=== PATIENT | male | born 1945 | race Caucasian/White ===

== ENCOUNTER → 2017-12-06 | Outpatient (CLI) | payer OTHER ==
[~2017-12-06] MED LIST: LIDOCAINE 1% 300 MG/30 ML SDV ONE
== END ==
LOC: FIMAGING 12:11
PROVIDERS: ATTEND Internal Medicine Endocrinology, Diabetes & Metabolism
PROC: 0G9G3ZX Drainage of Left Thyroid Gland Lobe, Percutaneous Approach, Diagnostic (ICD-10-PCS; principal; 2017-12-06)
DX: D34 Benign neoplasm of thyroid gland (principal)

== ENCOUNTER 2018-10-05 14:08 | Emergency (ER) | payer OTHER ==
--- NOTE | 2018-10-05 15:15 | EDPHY ---
HPI/HX/ROS/PE/MDM Narrative: CHIEF COMPLAINT: Fall, head injury HPI: The patient is a 72 y/o male complaining of a head injury secondary to a mechanical slip and fall about 1 hour ago. He was walking down the trail with his dog when he slipped and fell landing backwards and striking the back of his head on a rock. He did not lose consciousness, but did have pain on his posterior scalp. He got up and walked home and he and his then noticed he was bleeding so he came to the ED. He denies headache, blurred vision, weakness , paresthesias, vision changes, acute neck or back pain, or any other trauma from the fall. No anticoagulant use. Takes a daily baby aspirin. REVIEW OF SYSTEMS: Aside from elements discussed in the HPI, a comprehensive 10-point review of systems was reviewed and is negative. 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 . Lives in [place]. Very active, hikes with dog for 2 hours daily. PCP: Dr. Lacy. PHYSICAL EXAM: General:Patient is alert, in no acute distress. Head: 1cm laceration to right occiput. ENT:Eyes are normal to inspection. ENT inspection normal. Neck: Normal inspection. Full range of motion. Respiratory:No respiratory distress. Breath sounds normal bilaterally. Cardiovascular: Regular rate and rhythm. Strong peripheral pulses. Normal cap refill. Abdomen:The abdomen is nontender to palpation. There are no peritoneal signs. Back: Normal to inspection. No tenderness to palpation. Skin: Normal color. No rash. Warm and dry. Extremities: Normal appearance. Full range of motion. Neuro: Oriented x3. Normal motor function. Normal sensory function. ED Course: This is a healthy and well-appearing 72 y/o male who presents with a posterior scalp injury secondary to a slip and fall while hiking today. He has a completely normal neurologic exam. There is a 1cm laceration to the right occiput, but no other visible trauma. Discussed risks and benefits of neuroimaging given age, head injury, and aspirin use. He has opted for head CT, which I agree is reasonable. Plan to repair laceration with Dermabond. Procedure: Laceration repair. Verbal consent was obtained from the patient. The linear 1cm laceration on the right occiput was anesthetized using topical anesthetic. The wound was cleaned with standard ED protocol. There were no deep structures involved. The wound was repaired with Dermabond. The wound repair was simple. The procedure was performed by myself, Dr. Bates. Head CT: negative per Dr. Lozano. Reassessed patient and discussed findings. Neuro exam remains normal. He will be discharged home with standard care and follow up instructions. Return precautions discussed. - Data Points Imaging Results: Imaging Impressions Head CT 10/05/18 15:22 Impression: There is a small right occipital scalp laceration, with no acute intracranial abnormality identified on this unenhanced CT evaluation. If there is further clinical concern regarding the patient's symptoms, MR imaging is suggested, if not otherwise contraindicated. Findings were discussed with Forrest Bates MD at 16:03, on 10/05/2018. Imaging: Discussed imaging studies w/ callisthenics instructor Radiologist, I viewed and interpreted images myself Medications Given: Discontinued Medications Diphtheria/Tetanus/Acell Pertussis (Boostrix) 0.5 ml IM .ONCE ONE Stop: 10/05/18 16:19 Last Admin: 10/05/18 16:28 Dose: 0.5 ml General Time Seen by Provider: 10/05/18 14:57 Initial Vital Signs: Initial Vital Signs Temperature (C) 36.7 C 10/05/18 14:43 Heart Rate 58 L 10/05/18 14:43 Respiratory Rate 16 10/05/18 14:43 Blood Pressure 130/72 H 10/05/18 14:43 O2 Sat (%) 98 10/05/18 14:43 O2 Delivery Mode Room Air Allergies/Adverse Reactions: quinidine [Quinidine] Allergy (Severe, Verified 10/05/18 14:50) CHEST PAIN quinine [Quinine] Allergy (Unknown, Verified 10/05/18 14:50) AVOIDS DUE TO ALLERGY TO QUINIDINE Home Medications: Medication Instructions Recorded Zetia 10/05/18 Departure - Departure Disposition: Home, Routine, Self-Care Clinical Impression: Head injury Qualifiers: Encounter type: initial encounter Qualified Code(s): S09.90XA - Unspecified injury of head, initial encounter Scalp laceration Qualifiers: Encounter type: initial encounter Qualified Code(s): S01.01XA - Laceration without foreign body of scalp, initial encounter Condition: Good Instructions: Laceration (ED), Head Injury (ED) Additional Instructions: 1. Keep wound clean and dry. Do not apply Neosporin or other topical treatments as these can dissolve the glue. Do not scrub glue to remove it, it will slowly dissolve over the next week. 2. Follow up with your primary care provider as needed for unimproved symptoms over the next few days. 3. Return to the ED for severe pain, weakness, numbness, vision changes, speech difficulty, or other worsening of condition. Referrals: Gio Lcay MD [Medical Doctor] - As per Instructions Report Scribed for: Forrest Bates Report Scribed by: Marsha Nunes Date of Report: 10/05/18 Time of Report: 15:08 Physician Review and Approval Statement: Portions of this note were transcribed by an ED scribe. I personally performed the history, physical exam, and medical decision making; and confirm the accuracy of the information in the transcribed note.
[2018-10-05] MEDS ORDERED: SKIN ADHESIVE (DERMABOND) 1 EACH TP ONE (15:36)
[2018-10-05] MEDS ORDERED: TDAP ADULT 0.5 ML INJ (BOOSTRIX) IM ONE (16:18)
[2018-10-05 16:34] VITALS: BP 125/79
== END 2018-10-05 16:34 | disposition home or self-care (01) ==
PROC: 0HQ0XZZ Repair Scalp Skin, External Approach (ICD-10-PCS; principal; 2018-10-05)
DX: S01.01XA Laceration without foreign body of scalp, initial encounter (principal); E78.00 Pure hypercholesterolemia, unspecified; Z23 Encounter for immunization; Z79.899 Other long term (current) drug therapy; W01.0XXA Fall on same level from slipping, tripping and stumbling without subsequent striking against object, initial encounter; Y93.01 Activity, walking, marching and hiking; Y92.828 Other wilderness area as the place of occurrence of the external cause